=== PATIENT | female | born 1995 | race Caucasian/White ===

== ENCOUNTER 2016-12-12 18:13 | Emergency (ER) | payer OTHER ==
[~2016-12-12] VITALS: Ht 162.6 cm; Wt 63.5 kg
[~2016-12-12 18:13] MED LIST: DEPO-PROVE150 MG/1 M IM; FLAGYL500 MG PO; KEFLEX500 MG PO; NORCO 5-325 TA1 EACH PO; ZOFRAN ODT4 MG PO
[2016-12-12] MEDS ORDERED: MOBIC15 MG PO (19:14)
[2016-12-12] MEDS ORDERED: FLEXERIL PO (19:14)
[2016-12-12] MEDS ORDERED: MEDROLDOSEPACK PO (19:14)
== END 2016-12-12 19:18 | disposition home or self-care (01) ==
LOC: ER 18:13
DX: M54.5 Low back pain (principal)